=== PATIENT | female | born 2005 | race Caucasian/White ===

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

== ENCOUNTER 2023-09-16 13:22 | Outpatient (CLI) | payer BC, SELFPAY ==
[2023-09-16 23:06] LABS: Chlamydia DNA Amplified* DETECTED (No Detected)
[2023-09-16 23:07] LABS: GC DNA Amplified* NOT DETECTED (No Detected)
== END 2023-09-16 13:23 | disposition home or self-care (01) ==
PROVIDERS: PCP Physician Assistant Medical; Visit Provider Physician Assistant Medical
DX: Z00.00 Encounter for general adult medical examination without abnormal findings (principal); E55.9 Vitamin D deficiency, unspecified; Z11.3 Encounter for screening for infections with a predominantly sexual mode of transmission; Z13.0 Encounter for screening for diseases of the blood and blood-forming organs and certain disorders involving the immune mechanism
CPT/HCPCS: 82306; 86592; 86703; 86706; 86803; 87340; 87491; 87591

== ENCOUNTER 2023-10-11 12:05 | Outpatient (CLI) | payer BC, SELFPAY ==
[2023-10-11 23:30] LABS: Chlamydia DNA Amplified* NOT DETECTED (No Detected); GC DNA Amplified* NOT DETECTED (No Detected)
== END 2023-10-11 12:06 | disposition home or self-care (01) ==
LOC: LKVREF 12:05
PROVIDERS: PCP Physician Assistant Medical; Visit Provider Physician Assistant Medical
DX: A74.9 Chlamydial infection, unspecified (principal)
CPT/HCPCS: 87491; 87591

== ENCOUNTER 2024-11-09 16:28 | Outpatient (CLI) | payer BC, SELFPAY ==
[2024-11-09 23:06] LABS: Chlamydia DNA Amplified* NOT DETECTED (No Detected); GC DNA Amplified* NOT DETECTED (No Detected)
== END 2024-11-09 16:29 | disposition home or self-care (01) ==
PROVIDERS: PCP Physician Assistant Medical; Visit Provider Physician Assistant Medical
DX: Z00.01 Encounter for general adult medical examination with abnormal findings (principal); R79.0 Abnormal level of blood mineral; E55.9 Vitamin D deficiency, unspecified; F41.8 Other specified anxiety disorders; Z13.6 Encounter for screening for cardiovascular disorders; Z11.3 Encounter for screening for infections with a predominantly sexual mode of transmission
CPT/HCPCS: 80061; 82306; 82728; 84443; 87491; 87591